=== PATIENT | male | born 1975 | race Caucasian/White ===

== ENCOUNTER → 2016-04-25 03:50 | Emergency (ER) | payer OTHER ==
[~2016-04-25 03:50] MED LIST: ALPRAZOLAM PO; ARIXTRA7.5 MG/0.6 SQ; COUMADIN; COUMADIN5 MG PO; COUMADIN6 MG PO; DEBROX15 M1 OT; FLEXERIL; FLEXERIL PO; LISINOPRIL; LISINOPRIL5 MG PO; METOPROLOL SUCC50 MG PO; METOPROLOL TAR25 MG PO; PERCOCET5/325 PO; PRINCIPEN500 M1 PO; TOPROL XL PO; TYLOX1 CAP 5/50 PO; ULTRAM PO
== END | disposition home or self-care (01) ==
LOC: CED 03:50
DX: R11.10 Vomiting, unspecified (principal); R19.7 Diarrhea, unspecified; D68.62 Lupus anticoagulant syndrome; Z86.711 Personal history of pulmonary embolism; Z87.891 Personal history of nicotine dependence; Z98.890 Other specified postprocedural states; Z79.01 Long term (current) use of anticoagulants
CPT/HCPCS: 99282

== ENCOUNTER 2016-05-03 14:06 | Emergency (ER) | payer OTHER ==
--- NOTE | ~2016-05-03 | CT16 ---
[facility] A Service of [facility] RADIOLOGY TEXT RESULTS PATIENT: CONRADO SAXENA LOCATION: [facility] : 79 UNIT #: [id number] AGE: [address]: Arron Samaniego MD SEX: M ORDER DR: [id number] [facility] [address] [place], [place] [address] [id number] MR#: [id number] Acc #: [id number] NAME: CONRADO SAXENA. : 1975 SEX: M STUDY DATE/TIME: 05/03/2016 14:33 UNIT: [facility] ROOM: STUDY DESCRIPTION: CT Angio Chest for PE Attending Physician: Arron Samaniego M.D. Ordering Physician: Arron Samaniego M.D. Primary Care Physician: Primary Care Physician No MEDICAL IMAGING REPORT This report is preliminary unless electronic signature is present EXAM CT angiography chest for PE. HISTORY Right rib pain, flank pain 3 days. Prior history of PE. FINDINGS This CT exam was performed with one or more of the following radiation dose reduction techniques: Automatic exposure control, adjustment of mA and/or kV according to patient size, and iterative reconstruction. CT pulmonary angiography performed with intravenous administration of 80 mL Isovue-370. Three-dimensional reconstructions performed through the pulmonary arteries. Comparison 09/17/2015. Thyroid unremarkable. No axillary, mediastinal or hilar adenopathy. Heart normal in size. No pleural effusions. Visualized portions of liver, gallbladder, spleen, pancreas, adrenal glands, upper renal poles unremarkable. No upper abdominal adenopathy. Visualized alimentary canal unremarkable. Pulmonary parenchyma shows no acute pulmonary disease. No suspicious nodule. Pulmonary arteries are well opacified. No PE. No aortic aneurysm or dissection. The visualized aortic branch vessels are patent. Bony structures are unremarkable. IMPRESSION 1. No PE. 2. No evidence of aortic aneurysm or dissection. 3. Lungs clear. 4. Visualized upper abdomen unremarkable. [facility] A Service of [facility] RADIOLOGY TEXT RESULTS PATIENT: CONRADO SXAENA LOCATION: [facility] : 79 UNIT #: [id number] AGE: [address]: Arron Samaniego MD SEX: M ORDER DR: Dictated by... Drew Aggarwal M.D. THIS IS AN ELECTRONICALLY VERIFIED REPORT Drew Aggarwal M.D. at 05/05/2016 4:25 PM Tricia TD: 05/03/2016 22:12 JOB #: [id number] MEDICAL IMAGING REPORT COPY
[2016-05-03 14:17] LABS: BASOPHIL# 0.1 X10e3 (0-0.3); BASOPHIL% 1.2 % (0-2.5); EOSINOPHIL# 0.3 X10e3 (0-0.7); HEMOGLOBIN 16.2 gm/dL (13.0-16.0); LYMPHOCYTE% 43.6 % (17.0-45.0); MEAN CELL VOLUME 97.7 FL (83-96); MEAN CORPUSCULAR HEMOGLOBIN 33.6 PG (28-34); MEAN CORPUSCULAR HGB CONC 34.4 g/dL (30-36); MEAN PLATELET VOLUME 11.3 FL (6.5-11.5); MONOCYTE# 0.6 X10e3 (0-1.0); MONOCYTE% 8.3 % (3.0-12.0); NEUTROPHIL% 42.9 % (40-75); PLATELET COUNT 162 X10e3 (140-420); RED BLOOD COUNT 4.81 X10e (3.90-5.60); RED CELL DISTRIBUTION WIDTH 12.9 % (11.0-15.5); WHITE BLOOD COUNT 6.9 X10e3 (4.0-10.5)
[2016-05-03 14:18] LABS: DIFF IND NO
[2016-05-03 14:40] LABS: POC - GFR >60.0 mL/min (>60)
[2016-05-03 14:45] LABS: ALBUMIN SERUM 4.2 g/dL (3.5-5.0); ALKALINE PHOSPHATASE 59 U/L (32-92); ALT (SGPT) 24 U/L (10-40); AST (SGOT) 19 U/L (10-42); BILIRUBIN, DIRECT 0.1 mg/dL (0.0-0.2); BILIRUBIN,INDIRECT 0.6 mg/dL (0.0-0.9); BILIRUBIN,TOTAL 0.7 mg/dL (0.2-2.0); BLOOD UREA NITROGEN 8 mg/dL (9-23); BUN/CREATININE RATIO 8.88; CALCIUM SERUM 8.7 mg/dL (8.4-10.2); CARBON DIOXIDE 27 mmol/L (22-31); CHLORIDE 102 mmol/L (100-111); CREATININE SERUM 0.9 mg/dL (0.6-1.4); GLOM FILT RATE Estimated ABOVE60 mL/min (>60); GLUCOSE FASTING 97 mg/dL (70-110); LIPASE 19 U/L (22-51); POTASSIUM 3.6 mmol/L (3.5-5.1); PROTEIN TOTAL SERUM 7.2 g/dL (6.0-8.3); SODIUM 137 mmol/L (135-145)
== END 2016-05-03 16:05 | disposition home or self-care (01) ==
LOC: CED 14:06
PROVIDERS: Emergency Medicine
DX: R07.89 Other chest pain (principal)
CPT/HCPCS: 36415; 71275; 80048; 80076; 82565; 83690; 85025; 99284; Q9967

== ENCOUNTER 2016-10-01 16:23 | Emergency (ER) | payer OTHER ==
[~2016-10-01] VITALS: Ht 170.2 cm; Wt 80.3 kg
== END 2016-10-01 17:20 | disposition home or self-care (01) ==
LOC: CED 16:23
DX: R51 Headache (principal); R20.2 Paresthesia of skin; I10 Essential (primary) hypertension
CPT/HCPCS: 99283